=== PATIENT | male | born 1965 | race Caucasian/White ===

== ENCOUNTER 2018-01-22 06:10 | Emergency (ER) | payer BC, SELFPAY ==
[2018-01-22 06:11] VITALS: BP 159/94; PULSE 71; RESP 20; TEMP 36.6; O2SAT 98; BMI 25.9
--- NOTE | 2018-01-22 07:25 | ED.DCSUM_ITS ---
- ER Visit Summary Date of Service: 01/22/18 Chief Complaint: Rash History of Present Illness: The patient is a 53 M who presents for 2 weeks of evolving rash. Patient states he was weeding a flower bed and afterwards he noted a rash that was itchy on his right forearm. It then spread to his upper arm and chest. Patient now has spots on his left arm, torso and since last night on his lower legs. He has itchiness but no pain. No fever, no mucosal involvement, no abdominal pain, nausea or vomiting, chest pain or shortness of breath, blistering, pain with pain, or any other complaints. Patient was seen at urgent care and put on 5 days of prednisone without any improvement. The rash evolved even on the prednisone. Patient denies any known history of tick bite or other known exposures. Physical Examination: Patient is well-appearing in no distress, sitting in bed. No increased work of breathing. No mucosal lesions. Large erythematous annular irregular bordered lesions with dry edges and central clearings. Lower extremities show solid a few small papular ovoid lesions without central clearing. Test Results: [] Emergency Department Course and Treatment: Patient is nontoxic-appearing and has no red flag symptoms that would be concerning for a life-threatening rash such as -Jose syndrome. Differential includes an inflammatory, vasculitis, bacterial infection, or fungal infection. The rash looks consistent with tinea corporis, and thus patient was treated with oral itraconazole given the wide distribution of the lesions. Because of the appearance of the initial lesion similar to erythema migrans and the potential harm from untreated lyme disease, patient was started on doxycycline as well. He is to use benadryl for itching. He is to follow up with dermatology, the rash does not resolve with the treatments. Patient was discharged home. Treatment Plan: [] Disposition: [] Impression: Pruritic rash, suspect tinea corporis This note was generated with [employer] dictation software. It may contain incorrect words, spelling, and punctuation that were not noted in review of the chart prior to signing ED Disposition - Plan for ED Patient: Chief Complaint: Rash Prescriptions: Itraconazole [Onmel] 200 mg PO DAILY 7 Days #7 tab Doxycycline Monohydrate 100 mg PO BID #28 cap Referrals: Care Physician,No Primary [Primary Care Provider] -
--- NOTE | 2018-01-22 07:25 | ED.DEP ---
ED Disposition - Plan for ED Patient: Disposition: Home or Assisted Living Chief Complaint: Rash Instructions: ED Ringworm Infec Fungal Prescriptions: Itraconazole [Onmel] 200 mg PO DAILY 7 Days #7 tab Doxycycline Monohydrate 100 mg PO BID #28 cap Referrals: Care Physician,No Primary [Primary Care Provider] - Additional Instructions: Please follow up with a metal handler if your rash persists despite treatment. You follow-up with a metal handler of your choice or the one on this paperwork: [facility] [address] [place] [address], [address] [place] [address] P: [phone] ?F: [phone] If you develop fever, lesions in your mouth or genitals, abdominal pain, nausea or vomiting, or any other concerning symptoms, please return immediately to the emergency department for another evaluation.
--- NOTE | 2018-01-22 07:27 | DCINST.ED_ITS ---
ED Disposition - Plan for ED Patient: Disposition: Home or Assisted Living Chief Complaint: Rash Instructions: ED Ringworm Infec Fungal Prescriptions: Itraconazole [Onmel] 200 mg PO DAILY 7 Days #7 tab Doxycycline Monohydrate 100 mg PO BID #28 cap Referrals: Care Physician,No Primary [Primary Care Provider] - Additional Instructions: Please follow up with a coffee shop aide if your rash persists despite treatment. You follow-up with a coffee shop aide of your choice or the one on this paperwork: [facility] [address] [place] [address], [address] [place] [address] P: [phone] ?F: [phone] If you develop fever, lesions in your mouth or genitals, abdominal pain, nausea or vomiting, or any other concerning symptoms, please return immediately to the emergency department for another evaluation.
== END 2018-01-22 07:34 | disposition home or self-care (01) ==
PROVIDERS: Emergency Provider Emergency Medicine
DX: B35.4 Tinea corporis (principal)
CPT/HCPCS: 99282